=== PATIENT | male | born 1965 ===

== ENCOUNTER 2017-06-11 13:24 | Emergency (ER) | payer OTHER, BC ==
[2017-06-11 13:30] VITALS: BP 148/78; PULSE 88; RESP 18; TEMP 97.9; O2SAT 99
--- NOTE | 2017-06-11 14:33 | ED PDOC ---
HPI: Back Time Seen by Provider: 06/11/17 14:22 Chief Complaint (Nursing): Back Pain Chief Complaint (Provider): Back Pain History Per: Patient History/Exam Limitations: no limitations Onset/Duration Of Symptoms: Days (x1) Current Symptoms Are (Timing): Still Present Additional Complaint(s): 51 y/o male with a pmhx of HTN, who presents to the ED for evaluation of back pain s/p slip and fall prior to arrival. Patient states he was at work when he slipped and fell of his truck. Says he landed on his left side and injured his back and left hip. Patient denies LOC or head injury. PMD: Provider TBD Past Medical History Reviewed: Historical Data, Nursing Documentation, Vital Signs Vital Signs: Last Vital Signs Temp 97.9 F 06/11/17 13:28 Pulse 88 06/11/17 13:28 Resp 18 06/11/17 13:28 BP 148/78 06/11/17 13:28 Pulse Ox 99 06/11/17 13:28 - Medical History PMH: HTN - Surgical History Surgical History: No Surg Hx - Family History Family History: States: Unknown Family Hx - Social History Alcohol: None Drugs: Denies - Home Medications Home Medications: Ambulatory Orders Medication Instructions Recorded Acetaminophen with Codeine 1 - 2 each PO QID #30 tablet 06/11/17 [Tylenol with Codeine #3 Tablet] - Allergies Allergies/Adverse Reactions: Allergies Allergy/AdvReac Type Severity Reaction Status Date / Time No Known Allergies Allergy Verified 06/11/17 13:28 Review of Systems ROS Statement: Except As Marked, All Systems Reviewed And Found Negative Musculoskeletal: Positive for: Back Pain Physical Exam - Reviewed Nursing Documentation Reviewed: Yes Vital Signs Reviewed: Yes - Physical Exam Appears: Positive for: Non-toxic, No Acute Distress Head Exam: Positive for: ATRAUMATIC Skin: Positive for: Normal Color, Warm, DRY Eye Exam: Positive for: Normal appearance Neck: Positive for: Normal Cardiovascular/Chest: Positive for: Other (left rib tenderness) Respiratory: Positive for: CNT, Normal Breath Sounds Back: Positive for: Other (tenderness to left iliac crest, no paraspinal tenderness). Negative for: Vertebral Tenderness (no midline thoracic tenderness , no midline lumbar tenderness) Extremity: Positive for: Normal ROM Neurologic/Psych: Positive for: Alert, Oriented (x3) - ECG O2 Sat by Pulse Oximetry: 99 (RA) Pulse Ox Interpretation: Normal Medical Decision Making Medical Decision Making: Time: 14:25 Initial Impression: r/o fracture Plan: -X-Ray Left Ribs -X-Ray Left Pelvis -Flexeril 10mg PO -Toradol 50mg IM -Tylenol 650mg PO -Reevaluation 1502 PROCEDURE: Left Hip X-ray Radiographs. HISTORY: trauma COMPARISON: None. FINDINGS: BONES: No acute fracture. JOINTS: Normal. SOFT TISSUES: Normal. OTHER FINDINGS: None. IMPRESSION: No demonstrated fracture or dislocation. 1505 PROCEDURE: Radiographs of the Chest and Left Ribs. HISTORY: trauma COMPARISON: None available. TECHNIQUE: Frontal radiograph of the chest and multiple oblique radiographs of the left ribs were obtained. FINDINGS: LEFT RIBS: Questionable nondisplaced fracture of the posterior lateral left 6th rib. LUNGS: Clear. PLEURA: No pneumothorax or pleural fluid. CARDIOVASCULAR: Normal sized heart. No pulmonary vascular congestion. OTHER FINDINGS: None. IMPRESSION: Questionable nondisplaced fracture of the posterior lateral left 6th rib. Correlation with the patient's site of pain is recommended. Scribe Attestation: Documented by Ramon العلي, acting as a scribe for Edgardo Perkins PA-C Provider Scribe Attestation: All medical record entries made by the Scribe were at my direction and personally dictated by me. I have reviewed the chart and agree that the record accurately reflects my personal performance of the history, physical exam, medical decision making, and the department course for this patient. I have also personally directed, reviewed, and agree with the discharge instructions and disposition. Disposition - Clinical Impression Clinical Impression: Rib fracture, Contusion - Patient ED Disposition Is Patient to be Admitted: No Counseled Patient/Family Regarding: Studies Performed, Diagnosis, Rx Given - Disposition Disposition: Routine/Home Disposition Time: 15:40 Condition: GOOD Prescriptions: Acetaminophen with Codeine [Tylenol with Codeine #3 Tablet] 1 - 2 each PO QID # 30 tablet Instructions: Rib Fractures in Adults, Taking Care of Bruises, Rib Fracture (DC ), Contusion (DC) Forms: [facility] [employer] ([employer])
--- NOTE | 2017-06-11 15:04 | RAD ---
PROCEDURE: Left Hip X-ray Radiographs. HISTORY: trauma COMPARISON: None. FINDINGS: BONES: No acute fracture. JOINTS: Normal. SOFT TISSUES: Normal. OTHER FINDINGS: None. IMPRESSION: No demonstrated fracture or dislocation.
--- NOTE | 2017-06-11 15:06 | RAD ---
PROCEDURE: Radiographs of the Chest and Left Ribs. HISTORY: trauma COMPARISON: None available. TECHNIQUE: Frontal radiograph of the chest and multiple oblique radiographs of the left ribs were obtained. FINDINGS: LEFT RIBS: Questionable nondisplaced fracture of the posterior lateral left 6th rib. LUNGS: Clear. PLEURA: No pneumothorax or pleural fluid. CARDIOVASCULAR: Normal sized heart. No pulmonary vascular congestion. OTHER FINDINGS: None. IMPRESSION: Questionable nondisplaced fracture of the posterior lateral left 6th rib. Correlation with the patient's site of pain is recommended.
== END 2017-06-11 15:59 | disposition home or self-care (01) ==
LOC: H.ER 13:24
DX: S22.32XA Fracture of one rib, left side, initial encounter for closed fracture (principal); S79.912A Unspecified injury of left hip, initial encounter; W01.0XXA Fall on same level from slipping, tripping and stumbling without subsequent striking against object, initial encounter; Y99.0 Civilian activity done for income or pay; I10 Essential (primary) hypertension
CPT/HCPCS: 71100; 73501; 96372; 99283; J1885